=== PATIENT | female | born 1985 | race Two or more races ===

== ENCOUNTER 2017-03-06 06:51 | Emergency (ER) | payer MEDICAID ==
[~2017-03-06] VITALS: Ht 162.6 cm; Wt 94.8 kg
[~2017-03-06 06:51] MED LIST: HYDR1TAB PO; OMEP20TA20 PO
[2017-03-06 06:54] VITALS: BP 164/102
== END 2017-03-06 07:21 | disposition home or self-care (01) ==
LOC: ER 06:51
DX: J02.9 Acute pharyngitis, unspecified (principal); Z90.49 Acquired absence of other specified parts of digestive tract
CPT/HCPCS: 99283; A4606; Z7610

== ENCOUNTER 2017-04-27 14:23 | Emergency (ER) | payer MEDICAID ==
[~2017-04-27] VITALS: Ht 162.6 cm; Wt 90.7 kg
--- NOTE | 2017-04-27 14:35 | NUR ---
AMBULATORY TO ER BED . C/O FREQUENCY, BURNING SENSATION AFTER URINATING SINCE SATURDAY. PT DENES HEMATURIA. AWAITING MD PINK.
--- NOTE | 2017-04-27 15:06 | NUR ---
DR ESPOSITO AT BEDSIDE FOR EVAL.
[2017-04-27] MEDS ORDERED: IBUPROFEN 600 MG TABLET PO ONE ×2 (15:07→15:30)
[2017-04-27 15:11] LABS: APPEARANCE,URINE Clear (CLEAR); BILIRUBIN,URINE Negative (NEGATIVE); BLOOD, URINE Small Ery/uL (NEGATIVE); COLOR,URINE Yellow (YELLOW); KETONES,URINE Negative (NEGATIVE); LEUKOCYTE ESTERASE ,URINE Small (NEGATIVE); NITRITE, URINE Positive (NEGATIVE); PROTEIN,URINE Trace mg/dl (NEGATIVE); UGLUCOSE Negative (NEGATIVE); UROBILINOGEN,URINE 0.2 EU/dL (0.2)
[2017-04-27 15:13] LABS: PREGNANCY TEST URINE QUAL NEGATIVE (NEGATIVE)
[2017-04-27 15:33] LABS: BACTERIA,URINE 3+ /HPF (None Seen); SQUAMOUS EPITHELIAL CELL,UR Many /HPF (None Seen)
--- NOTE | 2017-04-27 16:18 | NUR ---
Patient discharged to home in stable condition. Written and verbal after care instructions given. Patient verbalizes understanding of instruction.
[2017-04-27 16:19] VITALS: BP 132/87
== END 2017-04-27 16:21 | disposition home or self-care (01) ==
LOC: ER 14:25
DX: N39.0 Urinary tract infection, site not specified (principal); Z90.49 Acquired absence of other specified parts of digestive tract
CPT/HCPCS: 81000-TC; 84703-TC; 87086-TC; 87186-TC; A4606; Z7610

== ENCOUNTER 2017-11-20 21:53 | Emergency (ER) | payer MEDICAID ==
[~2017-11-20] VITALS: Ht 162.6 cm; Wt 86.2 kg
[2017-11-20 21:55] VITALS: BP 158/88
== END 2017-11-21 00:09 | disposition left against medical advice (07) ==
LOC: ER 21:57
DX: Z53.21 Procedure and treatment not carried out due to patient leaving prior to being seen by health care provider (principal)
CPT/HCPCS: A4606; Z7610